=== PATIENT | female | born 1995 | race Caucasian/White ===

== ENCOUNTER 2016-10-11 00:54 | Inpatient (IN) | payer OTHER ==
[~2016-10-11] VITALS: Ht 175.3 cm; Wt 91.2 kg
[2016-10-11] MEDS ORDERED: Lactated Ringer's 1,000 ML IV PRN (02:03)
[2016-10-11] MEDS ORDERED: Sodium Chloride LOK Flush 10 mL Syringe IVFLUSH PRN (02:05)
[2016-10-11] MEDS ORDERED: Oxytocin 10 Unit/mL Inj IM PRN ×2 (02:05→11:50)
[2016-10-11] MEDS ORDERED: Oxytocin 30 Units/500 mL LR 30 UNITS in IV Premix 1 EACH IV PRN ×3 (02:05→11:50)
[2016-10-11] MEDS ORDERED: Methylergonovine 0.2 mg/mL Inj IM PRN ×2 (02:05→11:50)
[2016-10-11] MEDS ORDERED: Hemorrhage Kit, Post Partum XX ONE ×2 (02:05→11:50)
[2016-10-11] MEDS ORDERED: Ondansetron 2 mg/mL 2 mL Inj IVPUSH PRN ×2 (02:05→04:40)
[2016-10-11] MEDS ORDERED: Carboprost 250 mCg/mL Inj IM PRN ×2 (02:05→11:50)
[2016-10-11 03:03] LABS: Mean Corpuscular Hemoglobin 24.2 pg (27.0-35.0); Mean Corpuscular Volume 76.7 fL (81-100)
[2016-10-11] MEDS ORDERED: Lactated Ringer's 500 ML IV ONE (04:36)
--- NOTE | 2016-10-11 04:38 | PCM.HPANE ---
Patient Data Surgeon Admitting Provider:Renzo Larios MD Attending Provider:Renzo Larios MD Primary Care Physician:Renzo Larios MD Other Provider:Tung العلي Anesthesia Reason for Visit Term Labor TERM LABOR Ht/WT & BMI Body Mass Index Allergies Coded Allergies: No Known Allergies (Unverified , 10/11/16) History Smoking Status: Never Smoker Stop/Bang Risk Assessment Category Category 1A: Patient has history of documented sleep apnea, and HAS NOT received any narcotic, sedative or anesthesia administration during this stay. Category 1B: Patient has history of documented sleep apnea, and HAS received any narcotic , sedative or anesthesia administration during this stay Category 2: Patient has SUSPECTED Obstructive Sleep Apnea, and HAS received any narcotic , sedative or anesthesia administration during this stay. Category 3: Patient has SUSPECTED Obstructive Sleep Apnea and HAS NOT received narcotic, sedative or anesthesia administration during this stay. Category 4: Outpatient in Procedural Areas with known sleep apnea or who screen positive for High Risk via the STOP/BANG questionnaire. Exam Exam General Appearance: Alert, Oriented X3, Cooperative HEENT/AIRWAY: MP 2, Neck Movement (from), Mouth Opening (wnl) Lungs: Clear to Auscultation Heart: Exam Unremarkable Meds/Labs/Diagnostics Labs Test 10/11/16 02:40 White Blood Count 11.8th/mm3 (3.8-10.1) Red Blood Count 4.17mil/mm3 (3.90-5.20) Hemoglobin 10.1g/dL (12.0-15.6) Hematocrit 32.0% (35.0-46.0) Mean Corpuscular Volume 76.7fL (81-100) Mean Corpuscular Hemoglobin 24.2pg (27.0-35.0) Mean Corpuscular Hemoglobin Concent 31.6% (32.0-37.0) Red Cell Distribution Width 16.2% (12.3-15.4) Platelet Count 169bil/L (150-400) Plan Impression Patient chart reviewed, patient interviewed and anesthestic plan with risks, benefits, and alternatives discussed, and informed consent obtained. ASA Physical Status: ASA2 Mod Systemic Disease Anesthetic Plan: Epidural Bene/Risks/Altern/Consents: Yes HP Complete Prior to Induction: Yes Other Patient had TWO epidurals the last delivery which was in [place]. The first one did not work at all she said. Darron Sanchez MD Oct 11, 2016 04:38
[2016-10-11] MEDS ORDERED: EPHEDrine Sulfate 50 mg/mL Inj IVPUSH PRN (04:40)
[2016-10-11] MEDS ORDERED: Atropine 1 mg/10 mL (Code) Syringe IVPUSH PRN (04:40)
[2016-10-11] MEDS ORDERED: fentaNYL 2 mCg/mL-Bupiv 0.125% 100 ML EPIDURAL SCH (04:40)
[2016-10-11] MEDS ORDERED: fentaNYL-PF 50 mCg/mL 2 mL Inj IVPUSH PRN (04:45)
--- NOTE | 2016-10-11 05:20 | PCM.ANEP1 ---
Post Anesthesia Phase 1 PACU Phase 1 Assessment Anesthetic Administered: Epidural Level of Alertness: Awake, talking REED's with Equal Strength: Yes Pain: No Nausea or Vomiting: No Oxygen Delivery: Room Air Lungs: Normal Air Movement Dermatome Level: T10 (Umbilicus) Darron Sanchez MD Oct 11, 2016 05:20
[2016-10-11] MEDS: Lactated Ringer's 1,000 ML IV SCH ×5 (09:43→20:36)
--- NOTE | 2016-10-11 11:48 | PCM.OBVAG ---
Vaginal Delivery Date of Service Oct 11, 2016 Procedure Obstetical Procedure: Normal Spontaneous Vaginal Delivery (with nuchal cord that avulsed.), Manual Extraction of Placenta (due to avulsion of the cord) Indication for Procedure Induction: Pitocin augmentation, SROM, Progressed normally through labor Findings Obstetrical Findings: Olean (Male), Cord (3 Vessel), 1 minute (8), 5 minutes (8), Placenta (Abnormal -- manually extracted, appears complete. ), Perineal Laceration (1st degree, small multiple tears -- repair not indictated. ) Analgesia/Medications Obstetrical Anesthesia: Epidural Blood Loss & Administration Blood Admin during procedure: No Post Procedure Plan Post delivery Condition: Mom stable, Baby stable to nursery Renzo Larios MD Oct 11, 2016 11:48
[2016-10-11] MEDS ORDERED: Witch Hazel-Glycerin Pads TOPICAL PRN (11:50)
[2016-10-11] MEDS ORDERED: LANOlin HPA 7 Gm Ointment TOPICAL PRN (11:50)
[2016-10-11] MEDS ORDERED: HYDROcodone-APAP 5-325 mg Tablet PO PRN (11:50)
[2016-10-11] MEDS ORDERED: Benzocaine (Dermoplast) 20% 60 Gm Spray TOPICAL PRN (11:50)
--- NOTE | 2016-10-11 13:36 | PCM.ANEP2 ---
Post Anesthesia Evaluation ASA/CMS Post Anesthesia VS in Patient's Normal Range?: Yes Resp Stable; Airway Patent?: Yes CV Function & Hydration Stable: Yes Mental Status Recovered?: Yes Pain control Satisfactory?: Yes N/V Control Satisfactory?: Yes Feng Sylvester MD Oct 11, 2016 13:35
[2016-10-12] MEDS: Lactated Ringer's 1,000 ML IV SCH ×2 (04:36→09:25)
[2016-10-12 06:08] LABS: Mean Corpuscular Hemoglobin 23.8 pg (27.0-35.0); Mean Corpuscular Volume 77.2 fL (81-100)
[2016-10-12 12:46] VITALS: BP 93/58; PULSE 73
[2016-10-12] MEDS ORDERED: Measles-Mumps-Rubella Vaccine 0.5 mL Inj SUBQ ONE ×2 (12:50→13:50)
--- NOTE | 2016-10-12 13:26 | PCM.DC.OB ---
Obstetrical Discharge Summary Date of Service Oct 12, 2016 Date of hospital admission Oct 11, 2016 at 01:00 Date of Discharge: Oct 12, 2016 Providers Admitting Physician: Renzo Larios MD Primary Care Physician: Renzo Larios MD Attending Physician: Renzo Larios MD Problems: (1) Qualifiers: Weeks of gestation: 42 weeks Qualified Code: O48.0 - Post-term Status: Resolved ICD Code: Z33.1 Invasive procedures , Manual Extraction of Uterus due to avulsed umbilical cord. Date of Procedure: Oct 11, 2016 Brief History and Physical: 42w with uncomplicated who arrived with SROM at term. Rubella Equivocal, Rh positive but antibody screen postive to a minor bloodtype. Discharge Medications: [place] #15, Ibuprofen Discharge Diet: No restrictions Discharge Activity-General: Pelvic Rest for 6 weeks, Try not to overdue, Be up and about, Balance rest and activity Renzo Larios MD Oct 12, 2016 13:26
--- NOTE | 2016-10-12 13:30 | PCM.DIOB ---
Obstetrical Disch Instruction Dates of Hospitalization Date of Hospital Admission Oct 11, 2016 at 01:00 Providers Admitting Physician: Renzo Larios MD Primary Care Physician: Renzo Larios MD Attending Physician: Renzo Larios MD Discharge Diagnosis Problems: (1) Qualifiers: Weeks of gestation: 42 weeks Qualified Code: O48.0 - Post-term Status: Resolved ICD Code: Z33.1 Diet Discharge Diet: No restrictions Activity Discharge Activity-General: No restrictions, Try not to overdue, Be up and about, Balance rest and activity, Activity as pain allows, Activity as energy allows Follow Up Plan Follow-up appointment: Weeks (6) Call your provider for: Fever or Chills, Shortness of breath, Heavy vaginal bleeding, Heavy bleeding, Epigastric pain, Excessive constipation, Vaginal discomfort, Red painful breasts Renzo Larios MD Oct 12, 2016 13:30
[2016-10-12] MEDS ORDERED: HYDR-4003 PO (13:32)
[2016-10-12] MEDS ORDERED: IBUP800T28 PO (13:32)
[2016-10-13] MEDS ORDERED: Measles-Mumps-Rubella Vaccine 0.5 mL Inj SUBQ ONE (08:30)
== END 2016-10-12 14:48 | disposition home or self-care (01) | DRG 767 ==
LOC: FBCO 00:54 → FBC 01:00
PROVIDERS: ADMIT Family Medicine; ATTEND Family Medicine
PROC: 10E0XZZ Delivery of Products of Conception, External Approach (ICD-10-PCS; principal; 2016-10-11)
PROC: 10D17ZZ Extraction of Products of Conception, Retained, Via Natural or Artificial Opening (ICD-10-PCS; 2016-10-11)
DX: O69.1XX0 Labor and delivery complicated by cord around neck, with compression, not applicable or unspecified (principal); O72.0 Third-stage hemorrhage; Z37.0 Single live birth; Z3A.49 Greater than 42 weeks gestation of pregnancy; O48.0 Post-term pregnancy; O69.89X0 Labor and delivery complicated by other cord complications, not applicable or unspecified